=== PATIENT | female | born 1985 | race African-American/Black ===

== ENCOUNTER 2018-07-02 21:08 | Emergency (ER) | payer MEDICAID ==
[~2018-07-02] VITALS: Ht 147.3 cm; Wt 64.4 kg
[~2018-07-02 21:08] MED LIST: CEPH250C PO
[2018-07-02 22:03] LABS: Basophils # (auto) 0.1 uL; Basophils % (auto) 1.1 % (0.0-2.0); Eosinophils # (auto) 0.1 uL; Lymphocytes # (auto) 2.3 uL; Monocytes # (auto) 0.5 uL; Neutrophils # (auto) 2.2 uL; White Blood Cell 5.2 10^3/uL (4.4-10.8)
[2018-07-02 22:06] LABS: Eosinophils % (auto) 2.8 % (0.0-7.0); Hemoglobin 13.1 g/dL (12.2-16.2); Lymphocytes % (auto) 43.6 % (10.0-50.0); Mean Corpuscular Hemoglobin 34.1 pg (28.0-32.0); Mean Corpuscular Hgb Conc. 34.4 g/dL (32.0-36.0); Monocytes % (auto) 9.9 % (0.0-12.0); Neutrophils % (auto) 42.6 % (37.0-80.0); Nucleated Red Blood Cells % 0.2 %; Platelet Count (auto) 296 10^3/uL (140-450); Red Blood Cells 3.83 10^6/uL (4.0-5.20); Red Cell Distribution Width 13.7 % (11.8-14.3)
[2018-07-02 22:18] LABS: Anion Gap 5 (5-15); Carbon Dioxide 26 mmol/L (21-32); Chloride 107 mmol/L (98-107); Potassium 4.1 mmol/L (3.5-5.1); Sodium 138 mmol/L (136-145)
[2018-07-02 22:19] LABS: Alanine Aminotransferase 30 U/L (13-56); Alkaline Phosphatase 41 U/L (45-117); Aspartate Aminotransferase 16 U/L (15-37); BUN/Creatinine Ratio 15.7; Bilirubin, Total 0.2 mg/dL (0.2-1.0); Blood Urea Nitrogen 14 mg/dL (7-18); Calcium 8.9 mg/dL (8.5-10.1); GFR African American 93 mL/min; GFR Non-African American 77 mL/min; Glucose 108 mg/dL (74-106); Total Protein 7.8 g/dL (6.4-8.2)
[2018-07-02 22:20] LABS: Magnesium 2.2 mg/dL (1.6-2.6)
[2018-07-03] MEDS ORDERED: LORazepam 0.5 MG TAB PO ONE (04:45)
[2018-07-03 04:52] LABS: Urine Bacteria NONE SEEN /hpf (None Seen); Urine Blood Negative /uL (Negative); Urine Specific Gravity 1.014 (1.001-1.035); Urine WBC 9 /hpf (0 - 5)
[2018-07-03 05:04] LABS: Amphetamine Screen, Urine POSITIVE (NEGATIVE); Barbiturate Scree,Urine NEGATIVE (NEGATIVE); Benzodiazephine Screen, Urine NEGATIVE (NEGATIVE); Cannabinoid Screen, Urine NEGATIVE (NEGATIVE); Cocaine Screen, Urine NEGATIVE (NEGATIVE); Opiate Scree,Urine NEGATIVE (NEGATIVE); Phencyclidine Screen, Urine NEGATIVE (NEGATIVE)
[2018-07-03] MEDS ORDERED: SODIUM CHLORIDE 0.9% 1,000 ML IVB ONE (07:50)
[2018-07-03] MEDS ORDERED: LORazepam 2MG/ML-1ML VIAL IV ONE (08:00)
[2018-07-03] MEDS ORDERED: cefTRIAXone 1GM/10ml IVPUSH 10 ML IV ONE (08:00)
[2018-07-03 09:31] VITALS: BP 166/88
== END 2018-07-03 09:57 | disposition home or self-care (01) ==
LOC: ER 21:08
DX: R07.89 Other chest pain (principal); N39.0 Urinary tract infection, site not specified; F15.10 Other stimulant abuse, uncomplicated; F10.10 Alcohol abuse, uncomplicated; F31.9 Bipolar disorder, unspecified; F17.210 Nicotine dependence, cigarettes, uncomplicated
CPT/HCPCS: 36415; 71045; 80053; 80307; 81001; 81025; 83735; 83880; 84443; 84484; 85025; 93005; 96374; 96375; 99285; J0696; J2060; J7030

== ENCOUNTER 2019-02-11 20:12 | Emergency (ER) | payer MEDICAID ==
[~2019-02-11] VITALS: Ht 149.9 cm; Wt 54.4 kg
[2019-02-11] MEDS ORDERED: SODIUM CHLORIDE 0.9% 1,000 ML IVB ONE (20:41)
[2019-02-11] MEDS ORDERED: HALOPERIDOL LACTATE 5 MG/ML INJ VIAL IM ONE (20:45)
[2019-02-11] MEDS ORDERED: HALOPERIDOL LACTATE 5 MG/ML INJ VIAL ONE (20:48)
[2019-02-11 21:14] LABS: Basophils # (auto) 0.1 uL; Basophils % (auto) 0.6 % (0.0-2.0); Eosinophils # (auto) 0.1 uL; Eosinophils % (auto) 0.9 % (0.0-7.0); Hematocrit 40.5 % (36.0-46.0); Hemoglobin 13.8 g/dL (12.2-16.2); Lymphocytes # (auto) 1.9 uL; Mean Corpuscular Hemoglobin 32.4 pg (28.0-32.0); Mean Corpuscular Hgb Conc. 34.1 g/dL (32.0-36.0); Mean Corpuscular Volume 95.1 fL (80.0-100.0); Monocytes # (auto) 0.9 uL; Monocytes % (auto) 9.8 % (0.0-12.0); Neutrophils # (auto) 6.1 uL; Neutrophils % (auto) 67.7 % (37.0-80.0); Nucleated Red Blood Cells % 0.1 %; Platelet Count (auto) 361 10^3/uL (140-450); Red Blood Cells 4.26 10^6/uL (4.0-5.20); Red Cell Distribution Width 13.7 % (11.8-14.3)
[2019-02-11 21:30] LABS: Alanine Aminotransferase 26 U/L (13-56); Anion Gap 10 (5-15); Aspartate Aminotransferase 22 U/L (15-37); BUN/Creatinine Ratio 10.8; Blood Alcohol < 3.0 mg/dL (0-5); Blood Urea Nitrogen 10 mg/dL (7-18); Calcium 9.6 mg/dL (8.5-10.1); Carbon Dioxide 22 mmol/L (21-32); Chloride 105 mmol/L (98-107); GFR African American 88 mL/min; GFR Non-African American 73 mL/min; Glucose 93 mg/dL (74-106); Sodium 137 mmol/L (136-145)
[2019-02-11 21:33] LABS: Alkaline Phosphatase 65 U/L (45-117); Creatine Kinase IFCC 619 U/L (26-192); Total Protein 7.8 g/dL (6.4-8.2)
[2019-02-11 21:40] LABS: Urine Bacteria FEW /hpf (None Seen); Urine Blood Negative /uL (Negative); Urine Mucus FEW (None Seen); Urine Specific Gravity 1.009 (1.001-1.035); Urine WBC 2 /hpf (0 - 5)
[2019-02-11 21:41] LABS: Urine Pregnacy Test Negative (Negative)
[2019-02-11 21:52] LABS: Potassium 2.9 mmol/L (3.5-5.1)
[2019-02-11 22:05] LABS: Amphetamine Screen, Urine POSITIVE (NEGATIVE); Barbiturate Scree,Urine NEGATIVE (NEGATIVE); Benzodiazephine Screen, Urine NEGATIVE (NEGATIVE); Cannabinoid Screen, Urine NEGATIVE (NEGATIVE); Cocaine Screen, Urine POSITIVE (NEGATIVE); Opiate Scree,Urine NEGATIVE (NEGATIVE); Phencyclidine Screen, Urine NEGATIVE (NEGATIVE)
[2019-02-12] MEDS ORDERED: LORazepam 2MG/ML-1ML VIAL IV ONE (01:00)
[2019-02-12] MEDS ORDERED: POTASSIUM CHL 10% (20 MEQ/15ML) 15ml ORAL SOLN PO ONE (01:00)
[2019-02-12] MEDS ORDERED: POTASSIUM CHLORIDE 20 MEQ in D5W 5% 1,000 ML IV SCH (01:00)
[2019-02-12] MEDS ORDERED: D5W/ SOD CHL 0.9%/KCL 20MEQ 0 ML IV ONE (01:34)
[2019-02-12] MEDS ORDERED: POTASSIUM CHL 20MEQ/100ML 100 ML IV ONE (02:00)
[2019-02-12 06:14] VITALS: BP 110/63
== END 2019-02-12 06:14 | disposition home or self-care (01) ==
LOC: EDBD 20:12 → ER 20:12
DX: R44.3 Hallucinations, unspecified (principal); T43.625A Adverse effect of amphetamines, initial encounter; F14.10 Cocaine abuse, uncomplicated; F17.210 Nicotine dependence, cigarettes, uncomplicated; Y92.9 Unspecified place or not applicable
CPT/HCPCS: 36415; 71045; 80053; 80307; 80320; 81001; 81025; 82550; 85025; 93005; 94761; 96361; 96372; 96374; 99284; J1630; J2060; J3480; J7030; J7070; 96365; 96366; 96375

== ENCOUNTER 2020-09-12 13:11 | Emergency (ER) | payer MEDICAID | END 2020-09-12 14:08 | disposition left against medical advice (07) | LOC: ER 13:11 | DX: H57.13 Ocular pain, bilateral (principal); Z53.21 Procedure and treatment not carried out due to patient leaving prior to being seen by health care provider ==

== ENCOUNTER 2020-11-15 16:54 | Emergency (ER) | payer MEDICAID ==
[~2020-11-15] VITALS: Ht 147.3 cm; Wt 59.0 kg
[2020-11-15] MEDS ORDERED: LORazepam 2MG/ML-1ML VIAL IM ONE (17:15)
[2020-11-15] MEDS ORDERED: SODIUM CHLORIDE 0.9% 2,000 ML IV ONE (21:45)
[2020-11-16 00:36] LABS: Basophils # (auto) 0 10 ^3/uL (0-0.2); Basophils % (auto) 0.5 % (0.0-2.0); Eosinophils # (auto) 0.2 10 ^3/uL (0-0.8); Eosinophils % (auto) 2.6 % (0.0-7.0); Hematocrit 35.8 % (36.0-46.0); Hemoglobin 11.8 g/dL (12.2-16.2); Lymphocytes # (auto) 2.3 10 ^3/uL (0.4-5.4); Lymphocytes % (auto) 39.8 % (10.0-50.0); Mean Corpuscular Hemoglobin 31.6 pg (28.0-32.0); Mean Corpuscular Hgb Conc. 32.9 g/dL (32.0-36.0); Mean Corpuscular Volume 96.1 fL (80.0-100.0); Monocytes # (auto) 0.7 10 ^3/uL (0-1.3); Monocytes % (auto) 12.7 % (0.0-12.0); Neutrophils # (auto) 2.6 10 ^3/uL (1.6-8.6); Neutrophils % (auto) 44.4 % (37.0-80.0); Nucleated Red Blood Cells % 0.1 %; Platelet Count (auto) 361 10^3/uL (140-450); Red Blood Cells 3.72 10^6/uL (4.0-5.20); White Blood Cell 5.9 10^3/uL (4.4-10.8)
[2020-11-16 00:59] LABS: Albumin 3.1 g/dL (3.4-5.0); Blood Urea Nitrogen 13 mg/dL (7-18); Calcium 8.1 mg/dL (8.5-10.1); GFR African American 139 mL/min; GFR Non-African American 115 mL/min; Glucose 76 mg/dL (74-106)
[2020-11-16 01:04] LABS: Alanine Aminotransferase 19 U/L (13-56); Alkaline Phosphatase 59 U/L (45-117); Aspartate Aminotransferase 21 U/L (15-37); Bilirubin, Total 0.8 mg/dL (0.2-1.0); Total Protein 6.2 g/dL (6.4-8.2)
[2020-11-16 02:01] VITALS: BP 116/76
[2020-11-16 02:18] LABS: Chloride 110 mmol/L (98-107); Potassium 3.3 mmol/L (3.5-5.1); Sodium 140 mmol/L (136-145)
[2020-11-16 02:50] LABS: Anion Gap 9 (5-15); Carbon Dioxide 21 mmol/L (21-32)
== END 2020-11-16 03:06 | disposition home or self-care (01) ==
LOC: ER 16:54
DX: F23 Brief psychotic disorder (principal)
CPT/HCPCS: 36415; 80053; 84484; 84702; 85025; 96360; 96372; 99283; J2060; J7030

== ENCOUNTER 2020-11-16 07:38 | Emergency (ER) | payer MEDICAID ==
[~2020-11-16] VITALS: Ht 147.3 cm; Wt 57.6 kg
[2020-11-16 07:50] VITALS: BP 126/84
== END 2020-11-16 08:15 | disposition home or self-care (01) ==
LOC: ER 07:38
DX: F25.9 Schizoaffective disorder, unspecified (principal); F17.210 Nicotine dependence, cigarettes, uncomplicated

== ENCOUNTER 2021-06-09 20:42 | Emergency (ER) | payer MEDICAID ==
[~2021-06-09] VITALS: Ht 147.3 cm; Wt 2.1 kg
[~2021-06-09 20:42] MED LIST changes: +CEPH-322 PO; -CEPH250C PO
[2021-06-09 22:00] VITALS: BP 137/94
[2021-06-09] MEDS ORDERED: IBUPROFEN 800 MG TAB PO ONE (23:15)
[2021-06-10] MEDS ORDERED: CLINDAMYCIN 900MG IV 50 ML IV ONE (01:45)
[2021-06-10] MEDS ORDERED: ONDANSETRON HCL 4 MG/2 ML VIAL IV ONE (01:45)
[2021-06-10] MEDS ORDERED: HYDROmorphone HCL 2 MG/ML VL IV ONE (01:45)
[2021-06-10] MEDS ORDERED: MORPHINE SULF INJ 2 MG/ML SYRINGE 1ML IV ONE ×2 (02:00→04:15)
[2021-06-10 02:18] LABS: Basophils # (auto) 0.1 10 ^3/uL (0-0.2); Basophils % (auto) 0.6 % (0.0-2.0); Eosinophils # (auto) 0.2 10 ^3/uL (0-0.8); Eosinophils % (auto) 1.9 % (0.0-7.0); Hematocrit 36.3 % (36.0-46.0); Hemoglobin 12.3 g/dL (12.2-16.2); Lymphocytes # (auto) 2.6 10 ^3/uL (0.4-5.4); Lymphocytes % (auto) 21.7 % (10.0-50.0); Mean Corpuscular Hemoglobin 32.8 pg (28.0-32.0); Mean Corpuscular Hgb Conc. 33.8 g/dL (32.0-36.0); Mean Corpuscular Volume 96.8 fL (80.0-100.0); Monocytes # (auto) 0.8 10 ^3/uL (0-1.3); Monocytes % (auto) 6.7 % (0.0-12.0); Neutrophils # (auto) 8.3 10 ^3/uL (1.6-8.6); Neutrophils % (auto) 69.1 % (37.0-80.0); Red Blood Cells 3.75 10^6/uL (4.0-5.20)
[2021-06-10 02:37] LABS: Albumin 3.5 g/dL (3.4-5.0); BUN/Creatinine Ratio 16.4; Calcium 8.2 mg/dL (8.5-10.1); Potassium 4.1 mmol/L (3.5-5.1)
[2021-06-10 03:02] LABS: Bilirubin, Total 0.3 mg/dL (0.2-1.0); Total Protein 7.2 g/dL (6.4-8.2)
== END 2021-06-10 05:42 | disposition home or self-care (01) ==
LOC: ER 20:42
DX: L02.11 Cutaneous abscess of neck (principal); F17.210 Nicotine dependence, cigarettes, uncomplicated; F15.10 Other stimulant abuse, uncomplicated
CPT/HCPCS: 36415; 76536; 80053; 83605; 85025; 96365; 96375; 96376; 99284; J2270; J2405; J3490

== ENCOUNTER 2021-10-07 12:25 | Emergency (ER) | payer MEDICAID ==
[~2021-10-07] VITALS: Ht 152.4 cm; Wt 59.0 kg
[2021-10-07 14:18] VITALS: BP 134/86
== END 2021-10-07 14:29 | disposition home or self-care (01) ==
LOC: ER 12:25
DX: J20.9 Acute bronchitis, unspecified (principal); F17.210 Nicotine dependence, cigarettes, uncomplicated; F15.10 Other stimulant abuse, uncomplicated; Z20.822 Contact with and (suspected) exposure to COVID-19
CPT/HCPCS: 36415; 71045; 87426

== ENCOUNTER 2021-10-16 15:20 | Emergency (ER) | payer MEDICAID ==
[~2021-10-16] VITALS: Ht 147.3 cm; Wt 61.2 kg
[2021-10-16] MEDS ORDERED: LORazepam 0.5 MG TAB PO ONE (16:15)
== END 2021-10-16 20:59 | disposition left against medical advice (07) ==
LOC: ER 15:20 → EDBD 15:20 → ER 20:59
DX: F41.8 Other specified anxiety disorders (principal); F17.210 Nicotine dependence, cigarettes, uncomplicated
CPT/HCPCS: 93005

== ENCOUNTER → 2022-05-10 | Emergency (ER) | payer MEDICAID ==
[~2022-05-10] VITALS: Ht 147.3 cm; Wt 62.6 kg
[~2022-05-10] MED LIST changes: +IBUP800T27 PO; +IBUPROFEN 800 MG TAB PO ONE
[2022-05-10 12:45] VITALS: BP 121/61
== END | disposition home or self-care (01) ==
LOC: ER 12:32
DX: M23.91 Unspecified internal derangement of right knee (principal); F17.210 Nicotine dependence, cigarettes, uncomplicated; Z79.1 Long term (current) use of non-steroidal anti-inflammatories (NSAID); Z79.899 Other long term (current) drug therapy
CPT/HCPCS: 73562

== ENCOUNTER 2022-06-15 00:14 | Emergency (ER) | payer MEDICAID ==
[~2022-06-15] VITALS: Ht 149.9 cm; Wt 61.3 kg
[~2022-06-15 00:14] MED LIST changes: -IBUPROFEN 800 MG TAB PO ONE
[2022-06-15] MEDS ORDERED: AZIT250T9 PO (02:45)
[2022-06-15] MEDS ORDERED: PRED20TA2 PO (02:45)
[2022-06-15] MEDS ORDERED: ALBUAER3 IN (02:45)
[2022-06-15 04:15] VITALS: BP 159/98
== END 2022-06-15 04:23 | disposition home or self-care (01) ==
LOC: ER 00:14
DX: U07.1 COVID-19 (principal); J40 Bronchitis, not specified as acute or chronic
CPT/HCPCS: 36415; 71045